=== PATIENT | female | born 1955 | race Caucasian/White ===

== ENCOUNTER → 2016-08-08 | Outpatient (CLI) | payer OTHER ==
[~2016-08-08] MED LIST: CALC200T; GLUCTAB7; LEVO-217 PO; LISI5TAB3 PO; MELO15TA3 PO; MULTTAB58 PO; VITACAP26
--- NOTE | 2016-08-09 12:36 | MAMMOGRAPHY REPORT ---
BILATERAL DIGITAL SCREENING MAMMOGRAM TOMOSYNTHESIS WITH CAD: 08/08/2016 CLINICAL HISTORY: Routine screening. Patient has no complaints. TECHNIQUE: Breast tomosynthesis in addition to standard 2D mammography was performed. Current study was also evaluated with a Computer Aided Detection (CAD) system. COMPARISON: Comparison is made to exams dated: 08/04/2015 mammogram, 06/29/2014 mammogram, 06/26/2013 mammogram, 05/16/2012 mammogram, 05/15/2011 mammogram, 05/10/2009, 11/17/2009 mammograms - [facility]. BREAST COMPOSITION: There are scattered areas of fibroglandular density in both breasts. FINDINGS: An asymmetry in the inferior middle one third of the left breast on the MLO view appears s imilar on all available prior mammograms dating back to at least 05/10/2009, therefore likely benign . No new suspicious mass, architectural distortion or cluster of microcalcifications is seen. IMPRESSION: ACR BI-RADS CATEGORY 1: NEGATIVE There is no mammographic evidence of malignancy. A 1 year screening mammogram is recommended. The p atient will receive written notification of the results. Approximately 10% of breast cancers are not detected with mammography. A negative mammographic repor t should not delay biopsy if a clinically suggestive mass is present. Evon Modi M.D. ay/:08/08/2016 18:04:35 Customer Expert: Josey NIELSON)([place]), [facility] letter sent: Normal 1/2 BI-RADS Code: ACR BI-RADS Category 1: Negative
== END | disposition home or self-care (01) ==
LOC: C.MAMM 08:33
PROVIDERS: ATTEND Family Medicine
DX: Z12.31 Encounter for screening mammogram for malignant neoplasm of breast (principal)

== ENCOUNTER → 2017-08-14 | Outpatient (CLI) | payer OTHER ==
--- NOTE | 2017-08-16 08:00 | MAMMOGRAPHY REPORT ---
BILATERAL DIGITAL SCREENING MAMMOGRAM TOMOSYNTHESIS WITH CAD: 08/14/2017 CLINICAL HISTORY: Routine screening. Patient has no complaints. TECHNIQUE: Breast tomosynthesis in addition to standard 2D mammography was performed. Current study was also evaluated with a Computer Aided Detection (CAD) system. COMPARISON: Comparison is made to exams dated: 08/08/2016 mammogram, 08/04/2015 mammogram, 06/29/2014 m ammogram, 06/26/2013 mammogram, 05/16/2012 mammogram, and 05/15/2011 mammogram - [facility] enter. BREAST COMPOSITION: There are scattered areas of fibroglandular density in both breasts. FINDINGS: There is a 5 mm nodular asymmetry in the anterior right breast along the posterior nipple line on the CC view (best seen on CC tomosynthesis slice 37/70), for which additional spot compressio n tomosynthesis views and possible ultrasound are recommended. No other suspicious mass, architectural distortion or cluster of microcalcifications is seen. IMPRESSION: ACR BI-RADS CATEGORY 0: INCOMPLETE EVALUATION: NEED ADDITIONAL IMAGING EVALUATION The 5 mm nodular asymmetry in the anterior right breast, best seen on the CC view, needs additional e valuation. The patient will be called to schedule an appointment. Approximately 10% of breast cancers are not detected with mammography. A negative mammographic report should not delay biopsy if a clinically suggestive mass is present. Evon Modi M.D. ay/:08/14/2017 15:50:23 [place] Worker: Meg Chung, [facility] letter sent: Addl Imaging 0 BI-RADS Code: ACR BI-RADS Category 0: Incomplete Evaluation: Need Additional Imaging Evaluation
== END | disposition home or self-care (01) ==
LOC: C.MAMM 08:24
PROVIDERS: ATTEND Family Medicine
DX: Z12.31 Encounter for screening mammogram for malignant neoplasm of breast (principal); N64.89 Other specified disorders of breast

== ENCOUNTER → 2017-08-21 | Outpatient (CLI) | payer OTHER ==
--- NOTE | 2017-08-21 15:13 | MAMMOGRAPHY REPORT ---
UNILATERAL RIGHT DIGITAL DIAGNOSTIC MAMMOGRAM TOMOSYNTHESIS AND TARGETED RIGHT ULTRASOUND: 08/21/2017 CLINICAL HISTORY: 62-year-old woman called back from screening mammography for a 5 mm nodular asymmet ry in the anterior subareolar right breast. No family history of breast cancer. TECHNIQUE: Spot compression right CC and MLO tomosynthesis images were obtained. COMPARISON: Comparison is made to exams dated: 08/14/2017 mammogram, 08/08/2016 mammogram, 08/04/2015 ma mmogram, 06/29/2014 mammogram, 06/26/2013 mammogram, and 05/16/2012 mammogram - [facility] nter. BREAST COMPOSITION: There are scattered areas of fibroglandular density in the right breast. FINDINGS: The spot compression tomosynthesis right CC view demonstrates an equal to low-density 5 mm nodular asymmetry in the slightly lateral anterior right breast. No associated calcification or arch itectural distortion. Not definitely identified on the spot compression MLO tomosynthesis images. F urther characterization with ultrasound was performed. Targeted ultrasound was performed in the periareolar and retroareolar right breast. There is a benig n anechoic simple cyst in the 11:00 periareolar right breast measuring 3.5 x 2.1 x 4.0 mm. This tahmina esponds in size and location as the mammographic mass and is benign. No suspicious solid mass is see n in the retroareolar right breast. IMPRESSION: ACR BI-RADS CATEGORY 2: BENIGN, TARGETED ULTRASOUND ACR BI-RADS CATEGORY 2: BENIGN The 5 mm nodular asymmetry in the subareolar right breast is thought to correspond to an anechoic lizy ign simple cyst in the 11:00 periareolar right breast on ultrasound. There is no mammographic or tar geted sonographic evidence of malignancy in the right breast. Recommend return to annual screening m ammography schedule. These results and recommendations were discussed with the patient at the time of the exam. Approximately 10% of breast cancers are not detected with mammography. A negative mammographic report should not delay biopsy if a clinically suggestive mass is present. Evon Modi M.D. ay/:08/21/2017 09:34:22 Branch Mechanic: Sowmya ACEVEDO(Ezequiel)([place]), [facility] letter sent: Normal 1/2 BI-RADS Code: ACR BI-RADS Category 2: Benign Ultrasound BI-RADS: ACR BI-RADS Category 2: Benign
== END | disposition home or self-care (01) ==
LOC: C.MAMM 08:51
PROVIDERS: ATTEND Family Medicine
DX: N64.9 Disorder of breast, unspecified (principal)